=== PATIENT | female | born 1940 | race Caucasian/White ===

== ENCOUNTER → 2018-06-13 16:36 | Outpatient (CLI) | payer MEDICARE, SELFPAY ==
[2018-06-13 18:20] LABS: Vitamin D,25 Hydroxy 15.8 ng/mL (29.95-100.01)
[2018-06-13 18:21] LABS: Anion Gap 9 (5-15); BUN 20 mg/dL (7-18); BUN/Creat Ratio 18.3 RATIO (10-20); Calcium,Total 8.6 mg/dL (8.5-10.1); Chloride 104 mmol/L (98-107); Cholesterol 230 mg/dL (200); Creatinine, Serum 1.09 mg/dL (0.55-1.02); EST Glomerular Filtration Rate 51 mL/min (>60); Est Glom Filt Rate - Afr Amer 62 mL/min (>60); Glucose 89 mg/dL (74-106); High Density Lipoprotein 44 mg/dL; Potassium 4.2 mmol/L (3.5-5.1); Sodium Level 139 mmol/L (136-145); Thyroid Stim Hormone (TSH) 1.12 uIU/mL (0.358-3.74); Triglycerides 304 mg/dL; Very Low Density Lipoprotein 61 mg/dL (5-40)
== END ==
PROVIDERS: Family Provider Family Medicine; PCP Family Medicine; Visit Provider Family Medicine
DX: Z00.00 Encounter for general adult medical examination without abnormal findings (principal)
CPT/HCPCS: 36415; 80048; 80061; 82306; 84443

== ENCOUNTER → 2018-08-08 07:15 | Outpatient (CLI) | payer MEDICARE, SELFPAY ==
--- NOTE | 2018-08-08 07:21 | BI_ITS ---
MAMMOGRAPHY - BILATERAL SCREENING REASON FOR EXAM: Female, 78 years old. Routine annual screening examination. PERTINENT HISTORY: Non-contributory. TECHNIQUE: Digital bilateral breast karlene (3D mammographic acquisition) in the CC and MLO projections. 2-D mediolateral oblique (MLO) and craniocaudad (CC) views of both breasts were obtained. CAD: Full Field Digital Mammography with Computer Added Detection was performed. COMPARISON: No comparison mammograms available at this time. If any prior films become available, an addendum to this report can be generated. FINDINGS: Breast Composition: There are scattered areas of fibroglandular density. There are no dominant masses or suspicious calcifications. There is an 8.4 mm x 5.4 mm well-defined nodule in the retroareolar region of the left breast. Correlation with ultrasound is recommended. No other significant abnormalities are identified. BI/SCREENING MAMM (CAD), BILAT IMPRESSION: 8.4 mm x 5.4 mm well-defined nodule in the retroareolar region of the left breast as described. Correlation with ultrasound is recommended. ASSESSMENT CATEGORY: BIRADS Category 0: Incomplete. Need additional imaging evaluation. A letter regarding these results will be sent to the patient by the facility within 30 days. Approximately 10% of breast cancers are not detected by mammography. A normal mammogram should not delay biopsy of a clinically suspicious abnormality. [id number] Electronically Signed: Garrett Kenney MD at 10:26 EST Tel [phone], Service support ,
== END ==
PROVIDERS: Family Provider Family Medicine; PCP Family Medicine; Visit Provider Family Medicine
DX: Z12.31 Encounter for screening mammogram for malignant neoplasm of breast (principal)
CPT/HCPCS: 77063; 77067

== ENCOUNTER → 2018-09-02 07:43 | Outpatient (CLI) | payer MEDICARE, SELFPAY ==
--- NOTE | 2018-09-02 07:45 | US_ITS ---
STUDY: ULTRASOUND BREAST - LEFT REASON FOR EXAM: Female, 78 years old. Abnormal screening mammogram. TECHNIQUE: Axial and longitudinal images of the LEFT breast were performed with a high resolution ultrasound transducer. COMPARISON: Comparison is made with prior mammogram dated August 08, 2018. FINDINGS: LEFT Breast: There is a 1 cm x 0.9 cm x 0.4 cm cyst in the retroareolar region of the breast. This corresponds to the mammographic findings. Incidental note is also made of a dilated subareolar ducts. US/Breast Limited Unilateral IMPRESSION: The mammographic abnormality corresponds to a 1 cm x 0.9 cm x 0.4 cm cyst in the retroareolar region of the left breast. There is also evidence of dilated subareolar ducts. ASSESSMENT CATEGORY: BIRADS Category 2: Benign. A letter regarding these results will be sent to the patient by the facility within 30 days. Electronically Signed: Garrett Kenney MD at 8:28 EST Tel [phone], Service support ,
--- OUTSIDE RECORDS SUMMARY | 2018-10-14 20:18 | XMS RPT_ITS ---
:1940 Author Organization [facility] Care Team Providers Name Role Phone Jet Meyer Attending Unavailable Mitch, Jet Primary Care Unavailable Mitch, Jet Attending Unavailable Mitch, Jet Primary Care Unavailable Mitch, Jet Attending Unavailable Mitch, Jet Referring Unavailable Mitch, Jet Primary Care Unavailable CebuOral valles Attending Unavailable Mitch, Jet Referring Unavailable PROBLEMS PROBLEMS DATE TYPE CONDITION / CODE ATTENDING STATUS SOURCE 09/15/2018 Unknown Z12.31 - Jet Meyer Active [place] Encounter for [facility] screening Hospital mammogram for Repository malignant neoplasm of breast / Z12.31(ICD-10) 06/13/2018 Unknown Z00.00 - Jet Meyer Active [place] Encounter for [facility] medical Repository examination without abnormal findings / Z00.00(ICD-10) PROCEDURES PROCEDURES No Procedure Records FoundRESULTS RESULTS SURGERY VISIT REPORT Observed: 09/11/2018 Status: F Source: [place] 8:25 AM [facility] REPOSITORY [facility] [address] [place], [place] [address]. [address] [place] [address] OFFICE VISIT Date of Service: 09/11/18 MR#: [id number] Acct: [id number] Name: KINDRA WORTHINGTON Rep #: [id number] : 1940 Provider: Oral Francis MD Age/Sex: 78/F Location: [facility] Status: Signed Intake Vital Signs09/11/18 Height 5 ft 5 in 09/11/18 Weight: 150 lb Intake Visit Reasons: Lt Breast Abn Mamm/US WC 08/08 Warper Creeler Required: No Is patient in pain?: No Allergies No Known Allergies Allergy (Verified 09/11/18 08:09) Medications NK 09/11/18 [History Confirmed 09/11/18] [facility] Medical History History of sarcoma (Acute) Hemorrhoids (Acute) Nausea (Acute) Heart murmur (Acute) Anxiety (Acute) Arthritis (Acute) Fatigue (Acute) Surgical History History of tonsillectomy and adenoidectomy (Acute) Hx of cholecystectomy (Acute) Hx of appendectomy (Acute) Hx of colonoscopy with polypectomy (Acute) Hx of lumpectomy (Acute) Hx of hysterectomy (Acute) Social History Smoking Status: Never smoker second hand exposure: No alcohol intake: never substance use type: does not use caffeine: Yes what type of physical activity do you participate in: none frequency: does not exercise seatbelt use: always HPI HPI HPI: KINDRA WORTHINGTON, is a 78 F who presents to the office today for surgical consultation regarding mammographic and ultrasonographic imaging. Patient was referred by her primary care physician Dr. Jet Meyer and a written copy of my surgical consult recommendations will return to him. 78-year-old female. A0. Menarche at age 11. First child was born when she was 21. She has had a remote left breast biopsy for fibrocystic disease. In the she was on estrogen replacement therapy because she had had a hysterectomy. Family history is negative for breast cancer. She has no breast tenderness. No nipple discharge. No nipple bleeding. She did have a diffuse body rash. She saw dermatology Dr. Chakraborty and there was concern this might be breast cancer and so imaging was recommended. The patient had just moved from [place] back to the state of [place]. There was mold in the home and then chemicals to clean the mold. On August 08, 2018 bilateral mammography . There is an 8.4 x 5.4 mm well-defined retroareolar nodule on the left. There is an addendum also written stating that films had been obtained from July 12, 2017 and there is no change from that study. The patient had a breast ultrasound also performed on September 02, 2018 showing that this left breast item is a 1 x 0.9 x 0.4 cm simple cyst and that there was some slight ductal dilatation on the left. ROS General General: Yes fatigue; no weight change, appetite, colon cancer, breast cancer or weakness HEENT HEENT: No difficulty swallowing, eye injury, eye surgery, swollen glands or hoarseness Endo Endocrine: No thyroid disease, diabetes mellitus, thyroid cancer, Hair loss, heat intolerance or cold intolerance Skin Skin: Yes rash; no changing moles Breast Breast: Yes abnormal US and abnormal mammogram; no left breast lump, right breast lump, nipple discharge, breast pain or breast enlargement Musc Musculoskeletal: Yes back problems and arthritis; no rheumatoid arthritis, gout or joint pain Cardio Cardiovascular: Yes murmur; no pacemaker, heart disease, atrial fibrillation, high blood pressure, heart attack, heart stent, palpitations, shortness of breat with exertion or chest pain Psych Psychiatric: Yes anxiety; no depression or hearing voices Resp Respiratory: Yes cough, No shortness of breath, No sleep apnea, No COPD, No asthma, No emphysema, No wheezing Gastro Gastrointestinal: Yes nausea or vomiting, Yes hemorrhoids, No abdominal pain, No diarrhea, No constipation, No blood in stool, No acid reflux, No ulcers, No gallbladder problem, No black,tarry stools Hamlet Hematologic: No blood thinners, No blood disorders, No bleeding, No anemia, No blood clots Neuro Neurologic: No weakness, Yes tingling, Yes numbness Exam Chest Breast Palpation: No nipple discharge Other: Bilateral breasts: No focal masses. No nipple discharge. No tenderness. No axillary or clavicular adenopathy Cardio Heart Sounds: murmur Assessment AND Plan Problems 1. Abnormal mammogram of left breast R92.8 Plan 78-year-old female who initially had an abnormal mammogram on the left. However by obtaining ultrasound and obtaining her previous films from July 2017 there is evidence that there is no change in the simple cyst finding on the left. She has no breast symptoms bilaterally. There is mild ductal dilatation on ultrasound on the left but no findings to correlate. There is no dermal change of either areola or skin of the breast. I have reviewed her imaging. I am not recommending any surgical intervention at this time. The patient will continue with her self breast checks. She will obtain follow-up breast imaging at 1 year. She certainly is welcome to return if she were to develop a focal issue. At this point it appears that her BI-RADS Category 2 interpretation on mammogram and ultrasound is consistent with my benign clinical finding as well CC: Dr. Jet Francis M.D., F.A.C.S. Coding Level of Care Code Prob focused, straight fwd Diagnoses Abnormal mammogram of left breast R92.8 09/11/18 0825 <Electronically signed by Oral Francis MD> Date Oral Francis MD Cosigner Signature: Date (if applicable) CC: Jet Meyer MD BREAST LIMITED Observed: 09/02/2018 Status: F Source: [place] UNILATERAL 7:46 AM [facility] REPOSITORY [facility] [address] [place] [address] Breast Limited Unilateral MR#: [id number] Acct: [id number] Name: ELINKINDRA HARDIN Edwardo Rep #: [id number] : 1940 F 78 From: Garrett Kenney MD PCP: Jet Meyer MD Status: REG CLI Study: Breast Limited Unilateral Date of Exam: 09/02/18 Exam# [id number] Ordering Dr: Jet Meyer MD STUDY: ULTRASOUND BREAST - LEFT REASON FOR EXAM: Female, 78 years old. Abnormal screening mammogram. TECHNIQUE: Axial and longitudinal images of the LEFT breast were performed with a high resolution ultrasound transducer. COMPARISON: Comparison is made with prior mammogram dated August 08, 2018. FINDINGS: LEFT Breast: There is a 1 cm x 0.9 cm x 0.4 cm cyst in the retroareolar region of the breast. This corresponds to the mammographic findings. Incidental note is also made of a dilated subareolar ducts. US/Breast Limited Unilateral IMPRESSION: The mammographic abnormality corresponds to a 1 cm x 0.9 cm x 0.4 cm cyst in the retroareolar region of the left breast. There is also evidence of dilated subareolar ducts. ASSESSMENT CATEGORY: BIRADS Category 2: Benign. A letter regarding these results will be sent to the patient by the facility within 30 days. Electronically Signed: Garrett Kenney MD at 8:28 EST Tel [phone], Service support , CC: Jet Meyer MD Exhibition Organiser: Signed SCREENING MAMM (CAD), Observed: 08/08/2018 Status: F Source: [facility] 7:22 AM [facility] REPOSITORY [facility] Imaging Services [address] [place] [address] SCREENING MAMM (CAD), BILAT MR#: [id number] Acct: [id number] Name: ELINKINDRA A Rep #: [id number] : 1940 F 78 From: Garrett Kenney MD PCP: Jet Meyer MD Status: [facility] Study: SCREENING MAMM (CAD), BILAT Date of Exam: 08/08/18 Exam# [id number] Ordering Dr: Jet Meyer MD ADDENDUM by Garrett Kenney MD on 08/27/18 at 1320 ADDENDUM This is an addendum report. Prior outside examination dated July 12, 2017 has been made available for comparison. There has been no change since prior study. Electronically Signed: Garrett Kenney MD at 13:20 EST Tel [phone], Service support , 08/27/18 1320 Date cc: Jet Meyer MD * Signed ADDENDUM by Garrett Kenney MD on 08/27/18 at 1320 BI/SCREENING MAMM (CAD), BILAT 08/27/18 1327 Date cc: Jet Meyer MD * Signed MAMMOGRAPHY - BILATERAL SCREENING REASON FOR EXAM: Female, 78 years old. Routine annual screening examination. PERTINENT HISTORY: Non-contributory. TECHNIQUE: Digital bilateral breast karlene (3D mammographic acquisition) in the CC and MLO projections. 2-D mediolateral oblique (MLO) and craniocaudad (CC) views of both breasts were obtained. CAD: Full Field Digital Mammography with Computer Added Detection was performed. COMPARISON: No comparison mammograms available at this time. If any prior films become available, an addendum to this report can be generated. FINDINGS: Breast Composition: There are scattered areas of fibroglandular density. There are no dominant masses or suspicious calcifications. There is an 8.4 mm x 5.4 mm well-defined nodule in the retroareolar region of the left breast. Correlation with ultrasound is recommended. No other significant abnormalities are identified. BI/SCREENING MAMM (CAD), BILAT IMPRESSION: 8.4 mm x 5.4 mm well-defined nodule in the retroareolar region of the left breast as described. Correlation with ultrasound is recommended. ASSESSMENT CATEGORY: BIRADS Category 0: Incomplete. Need additional imaging evaluation. A letter regarding these results will be sent to the patient by the facility within 30 days. Approximately 10% of breast cancers are not detected by mammography. A normal mammogram should not delay biopsy of a clinically suspicious abnormality. [id number] Electronically Signed: Garrett Kenney MD at 10:26 EST Tel [phone], Service support , CC: Jet Meyer MD Exhibition Organiser: Signed VITAMIN D,25 HYDROXY Collected: 06/13/2018 Status: F Source: [place] 4:42 PM [facility] REPOSITORY TYPE CODE TESTS RESULT OUT OF REFERENCE UNITS RANGE LAB L506.1000 29.95-100.01 ng/mL Low Vitamin D 15.8 25-OH Result Comment: Vitamin D 25(OH) Status Range Deficiency <20 ng/mL (50nmol/L) Insuffciency 20 - 30 ng/mL (50 - 75 nmol/L) Sufficiency 30 - 100 ng/mL (75 - 250 nmol/L) Toxicity >100 ng/mL (>250 nmol/L) Performed By: #### L506.1000 #### [facility] [place], [address] BASIC METABOLIC Collected: 06/13/2018 Status: F Source: [place] PROFILE (BMP) 4:42 PM [facility] REPOSITORY TYPE CODE TESTS RESULT OUT OF RANGE REFERENCE UNITS LAB L501.0100 74-106 mg/dL Normal GLU 89 Result Comment: Please note revised GLUCOSE reference range effective 2017. LAB L501.1000 7-18 mg/dL High BUN 20 LAB L501.1100 0.55-1.02 mg/dL High CREAT,SERUM 1.09 Result Comment: The validity of the calculated GFR AND GFRAA in patients over 70 years has not been determined. Clinical correlation is essential. LAB L501.1110 >60 mL/min Low EST GFR 51 Result Comment: Non- GFR Calc LAB L501.1115 >60 mL/min Normal EST GFR - AA 62 Result Comment: GFR Calc LAB L501.1300 10-20 RATIO Normal BUN/CRE 18.3 LAB L501.2200 8.5-10.1 mg/dL CA Normal 8.6 LAB L501.5300 136-145 mmol/L NA Normal 139 LAB L501.5600 3.5-5.1 mmol/L K Normal 4.2 LAB L501.5900 98-107 mmol/L CL Normal 104 LAB L501.6100 21.0-32.0 mmol/L Normal CO2 26.0 LAB L501.6200 5-15 Normal GAP 9 Performed By: #### L500.2500, L500.4100, L501.9520 #### [facility] [address] [facility] [place], [address] LIPID PROFILE Collected: 06/13/2018 Status: F Source: [place] 4:42 PM [facility] REPOSITORY TYPE CODE TESTS RESULT OUT OF RANGE REFERENCE UNITS LAB L501.4900 200 mg/dL High CHOL 230 Result Comment: <200 mg/dL Desirable 200-240 mg/dL Borderline >240 mg/dL High Risk LAB L501.5000 mg/dL High TRIG 304 Result Comment: The drugs N-Acetylcysteine and Metamizole may falsely depress this assay. Serum Triglycerides Reference Interval Normal <150 mg/dL Borderline high 150 - 199 mg/dL High 200 - 499 mg/dL Very High > or = 500 mg/dL LAB L501.6400 mg/dL Normal HDL 44 Result Comment: The drugs N-Acetylcysteine and Metamizole may falsely depress this assay. Reference Range HDL <40 mg/dL Low HDL Cholesterol HDL >or= 60 mg/dL High HDL Cholesterol LAB L501.6500 0-130 mg/dL Normal LDL 125 LAB L501.6600 5-40 mg/dL High VLDL 61 Performed By: #### L500.2500, L500.4100, L501.9520 #### [facility] [address] [place], [address] THYROID STIM HORMONE Collected: 06/13/2018 Status: F Source: [place] (TSH) 4:42 PM [facility] REPOSITORY TYPE CODE TESTS RESULT OUT OF RANGE REFERENCE UNITS LAB L501.9520 0.358-3.74 uIU/mL Normal TSH 1.12 Performed By: #### L500.2500, L500.4100, L501.9520 #### [facility] [address] [place], [address] ALLERGIES ALLERGIES DATE TYPE / CODE NAME / CODE REACTION SEVERITY SOURCE 09/11/2018 Drug No Known Unknown [facility] Allergy/4160 Allergies/F00 [facility] 57265(SNOMED [id number](RXNOR Repository CT) M) ENCOUNTERS ENCOUNTERS ADMIT/DISCHARGE ACCOUNT ADMITTING ENCOUNTER LOCATION SOURCE NUMBER CLASS 09/11/2018/ [id number] Ambulatory [facility]B [place] [facility]ository 09/02/2018 [id number] Ambulatory [place] 0 [facility] ing:OPUS Repository 08/08/2018 [id number] [place] [facility] ing:OPBI Repository 06/13/2018 [id number] Ambulatory [place] 1 [facility] ing:MFPLAB Repository PAYERS PAYERS ENCOUNTER GUARANTOR PAYER SUBSCRIBER SOURCE 09/11/2018 KINDRA Brooke Primary KINDRA Raymond [id number] Insurance:ANTHEM [facility]ERD[facility] PPOPolicy [id number] Number: Repository [address]Ozy: 503 [id number] [phone] () Date:[id number] [address]OW: 09/11/2018 Secondary NOT GIVENUNK [place] Insurance:SELF PAY [facility] Number: Effective Repository Date:2018-09-09 09/02/2018 KINDRA Brooke Primary KINDRA Raymond [id number] Insurance:ANTHEM ZOLLINGERDOB[facility] PPOPolicy [id number] Number: Repository [id number]: [phone]) [id number] [phone] (HP) Date:[id number] [address] [place] [address] [place] [address]UG: 09/02/2018 Secondary NOT GIVENUNK [place] Insurance:SELF PAY [facility] Number: Effective Repository Date:2018-08-27 08/08/2018 KINDRA Brooke Primary KINDRA Brooke [place] [id number] Insurance:ANTHEM ZOLLINGERDOB: [facility] [address] MEDICARE PPOPolicy [id number] Number: Repository [id number]: (503) [id number] [phone] (HP) Date:[id number] [address] [place] [address] [place] [address]CZ: 08/08/2018 Secondary NOT GIVENUNK [place] Insurance:SELF PAY [facility] Number: Effective Repository Date:2018-08-07 06/13/2018 KINDRA Primary KINDRA [place] [id number] Insurance:ANTHEM ZOLLINGERDOB: [facility] [address] MEDICARE PPOPolicy [id number] Number: Repository [phone]: (503) [id number] [phone] (HP) Date:[id number] [address] [place] [address] [place] [address]HE: 06/13/2018 Secondary NOT GIVENUNK [place] Insurance:SELF PAY [facility] Number: Effective Repository Date:2018-06-13
== END ==
PROVIDERS: Family Provider Family Medicine; PCP Family Medicine; Referring Provider Family Medicine; Visit Provider Family Medicine
DX: R92.2 Inconclusive mammogram (principal)
CPT/HCPCS: 76642

== ENCOUNTER → 2019-01-12 10:56 | Outpatient (CLI) | payer MEDICARE, SELFPAY ==
[2018-09-11 08:08] VITALS: BMI 25.0
[2019-01-19 03:05] LABS: Alternaria alternata <0.10 kU/L (Class 0); Aspergillus fumigatus <0.10 kU/L (Class 0); Bahia Grass <0.10 kU/L (Class 0); Bermuda Grass <0.10 kU/L (Class 0); Bluegrass, Kentucky <0.10 kU/L (Class 0); Cat Hair/Dander, Standard <0.10 kU/L (Class 0); Cedar, Mountain <0.10 kU/L (Class 0); Cladosporium herbarum <0.10 kU/L (Class 0); Cockroach, American <0.10 kU/L (Class 0); D farinae Mite <0.10 kU/L (Class 0); D pteronyssinus <0.10 kU/L (Class 0); Dog Epithelia <0.10 kU/L (Class 0); Elm, American White <0.10 kU/L (Class 0); Hazelnut Tree <0.10 kU/L (Class 0); Hickory, White <0.10 kU/L (Class 0); Johnson Grass <0.10 kU/L (Class 0); Maple/Box Elder <0.10 kU/L (Class 0); Mucor racemosus <0.10 kU/L (Class 0); Mugwort <0.10 kU/L (Class 0); Mulberry, White <0.10 kU/L (Class 0); Oak, White <0.10 kU/L (Class 0); Penicillium chrysogen <0.10 kU/L (Class 0); Pigweed, Rough <0.10 kU/L (Class 0); Plantain, English <0.10 kU/L (Class 0); Ragweed, Short/Common <0.10 kU/L (Class 0); Sheep Sorrel(Dock) <0.10 kU/L (Class 0); Stemphylium herbarum <0.10 kU/L (Class 0); Sweet Gum <0.10 kU/L (Class 0); Sycamore, American <0.10 kU/L (Class 0)
[2019-01-19 10:02] LABS: Nettle <0.10 kU/L (Class 0)
== END ==
PROVIDERS: Family Provider Family Medicine; PCP Family Medicine; Visit Provider Family Medicine
DX: T78.40XA Allergy, unspecified, initial encounter (principal)
CPT/HCPCS: 36415; 86003

== ENCOUNTER → 2019-01-22 09:06 | Outpatient (CLI) | payer MEDICARE, SELFPAY ==
[2018-09-11 08:08] VITALS: BMI 25.0
[2019-01-22 10:39] LABS: Vitamin D,25 Hydroxy 21.7 ng/mL (29.95-100.01)
[2019-01-22 10:48] LABS: Anion Gap 5 (5-15); BUN 15 mg/dL (7-18); BUN/Creat Ratio 17.9 RATIO (10-20); Calcium,Total 8.9 mg/dL (8.5-10.1); Chloride 107 mmol/L (98-107); Cholesterol 258 mg/dL (200); Creatinine, Serum 0.84 mg/dL (0.55-1.02); EST Glomerular Filtration Rate 70 mL/min (>60); Est Glom Filt Rate - Afr Amer 84 mL/min (>60); Glucose 92 mg/dL (74-106); High Density Lipoprotein 48 mg/dL; Potassium 4.5 mmol/L (3.5-5.1); Sodium Level 140 mmol/L (136-145); Thyroid Stim Hormone (TSH) 1.92 uIU/mL (0.358-3.74); Triglycerides 126 mg/dL; Very Low Density Lipoprotein 25 mg/dL (5-40)
== END ==
PROVIDERS: Family Provider Family Medicine; PCP Family Medicine; Referring Provider Family Medicine; Visit Provider Family Medicine
DX: Z00.00 Encounter for general adult medical examination without abnormal findings (principal); E55.9 Vitamin D deficiency, unspecified
CPT/HCPCS: 36415; 80048; 80061; 82306; 84443

== ENCOUNTER 2019-05-04 06:08 | Emergency (ER) | payer MEDICARE, SELFPAY ==
[2018-09-11 08:08] VITALS: BMI 25.0
[2019-05-04 06:10] VITALS: BP 205/125; PULSE 92; RESP 15; TEMP 36.8; O2SAT 95; BMI 26.6
--- NOTE | 2019-05-04 06:17 | EKG12_ITS ---
Test Reason : LEG PAIN Blood Pressure : / mmHG Vent. Rate : 088 BPM Atrial Rate : 088 BPM P-R Int : 148 ms QRS Dur : 088 ms QT Int : 372 ms P-R-T Axes : 065 029 036 degrees QTc Int : 450 ms Normal sinus rhythm Normal ECG Confirmed by JUANITO EDWARDS, MAYLIN ([id number]), editor news CHALO GONZALEZ ([id number]) on 05/06/2019 10:43:48 AM Referred By: GONZALEZ Confirmed By:MAYLIN SOLOMON MD
--- NOTE | 2019-05-04 06:29 | ED.DCSUM_ITS ---
History of Present Illness Chief Complaint: Other, Pain/Inj Detail of Chief Complaint: Left lower extremity pain, weight gain, swelling Informant: Patient, Significant Other Onset: Today - Regarding transient intermittent left leg pain, Weeks - 5 pound weight gain and swelling of the lower extremities Context: Gradual Onset Timing: Intermittent Quality: Pain in thigh and distal anterior left leg Location: Left thigh and distal anterior left leg Current Severity: Presently no pain Maximum Severity: Severe Worsened by: Nothing Relieved by: Nothing Associated Symptoms: Tingling Narrative: Patient is an elderly woman who presents with thigh pain and intermittent left anterior leg pain. She describes the thigh pain is cramping. The leg pain was not cramping. There is no history of PE or DVT. She does report a 5 pound weight gain over the past several weeks. She also reports swelling of her lower extremities. She denies history of heart disease. She denies orthopnea PND. She denies dyspnea or dyspnea on exertion. She denies night sweats. She denies change in the consistency, frequency, caliber or color of her stool. She had a recent colonoscopy, 3 months ago, that was remarkable for a small polyp. She has had intermittent bright red blood on toilet paper. She states she has hemorrhoids. She denies chest pain or shortness of breath. 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13 (2) Hemorrhoids Status: Acute (3) Anxiety Status: Acute Past Medical History - Allergies and Home Meds Allergies/Adverse Reactions: Allergies No Known Allergies Allergy (Verified 09/11/18 08:09) Primary Care Physician: Jet Meyer MD [Primary Care Provider] - Prior records reviewed: Yes Lives: Spouse/ Significant Other Smoking Status: Never smoker Alcohol: Rare Drugs: None Review of Systems General: Denies: Chills, Fever, Sweats Eyes: Denies: Visual changes - bilaterally, Blurred Vision - bilaterally, Diplopia ENT: Denies: Rhinorrhea, Sore throat Cardiovascular: Denies: Chest pain, Palpitations Respiratory: Denies: Dyspnea, Cough, Dyspnea on exertion, Orthopnea, Paroxysmal nocturnal dyspnea Gastrointestinal: Denies: Abdominal pain, Nausea, Vomiting, Diarrhea, Constipation, Melena, Hematochezia Genitourinary: Denies: Dysuria, Hematuria, Frequency Musculoskeletal: Reports: Extremity Pain. Denies: Myalgias, Arthralgias, Neck pain, Back pain, Swelling Skin: Denies: Rash, Wounds Neurological: Reports: Parasthesia. Denies: Headache, Weakness, Numbness Psych: Reports: Anxiety Hematologic: Denies: Easy bruising, Easy bleeding Physical Exam Vital Signs/Narrative: Vital Signs Temp Pulse Resp BP Pulse Ox 05/04/19 06:10 98.3 F 92 15 205/125 H 95 Inital Vital Signs reviewed: Yes General: Well nourished, Well developed, No Acute Distress Head: Normocephalic, Atraumatic Eyes: Perrl, EOMI ENT: Moist mucous membranes, No rhinorrhea Neck: Supple, Nontender Cardiovascular: Regular rate, Regular rhythm, No murmurs, Normal S1, Normal S2 Respiratory: No distress, CTA bilaterally, Chest nontender Abdomen: Soft, Nontender, Nondistended, Normal bowel sounds Back: Nontender, Normal Inspection Extremities: Nontender, Edema - Plus minus pitting edema., - - There is no asymmetry, swelling, discoloration, leg vein distention, palpable cords or tenderness along the distribution of the deep venous system. Skin: Normal color, No rash, No Trauma. Negative for: Cyanosis, Diaphoresis, J aundice Neurological: Alert, Oriented x3, Cranial nerves II-XII grossly intact, Normal Strength, Normal Sensation Psychological: Normal affect, Normal Mood Diagnostic/Tx/Re-eval Laboratory Results 05/04/19 05/04/19 06:40 06:40 WBC 5.2 RBC 4.81 Hgb 14.4 Hct 42.5 MCV 88.4 MCH 29.9 MCHC 33.9 RDW Std Deviation 41.1 RDW Coeff of Jennifer 12.4 Plt Count 249 MPV 10.2 Immature Gran % (Auto) 0.400 Neut % (Auto) 61.0 Lymph % (Auto) 28.4 [place] % (Auto) 7.3 Eos % (Auto) 2.5 Baso % (Auto) 0.4 Absolute Neuts (auto) 3.2 Absolute Lymphs (auto) 1.47 Nucleated RBC % 0 Sodium 143 Potassium 4.6 Chloride 109 H Carbon Dioxide 26.0 Anion Gap 8 BUN 20 H Creatinine 0.99 Estim Creat Clear Calc 40.78 Est GFR (MDRD) Af Amer 69 Est GFR (MDRD) Non-Af 57 L BUN/Creatinine Ratio 20.2 H Glucose 112 H Calcium 9.1 Total Bilirubin 0.40 AST 22 ALT 27 Alkaline Phosphatase 76 Troponin I < 0.015 Total Protein 7.7 Albumin 3.8 Globulin 3.9 Albumin/Globulin Ratio 1.0 TSH 4.05 H Blood work is remarkable for slight elevation in TSH. This may represent hypothyroidism and because of her fatigue and weight gain. Troponin was normal. CBC is unremarkable. Liver enzymes and alk phos as well as calcium are normal. - EKG Initial EKG Interpretation: Sinus Rhythm - Ventricular rate is 88. PA interval is 148 ms. QRS duration 88 ms. QT is 372 ms. [place] is normal. The EKG is completely normal. - Medical Decision Making With history of fatigue, 5 pound weight gain swelling of extremities will obtain TSH to assess for hypothyroidism. EKG was obtained to determine if there are any changes to suggest ischemia. Troponin was obtained as well as CBC and electrolyte panel. Since lungs were clear to auscultation x-ray was not obtained. ED Disposition - Plan for ED Patient: Disposition: Home or Assisted Living Diagnosis: Elevated TSH, Pain in left leg Instructions: Common Thyroid Problems, PAIN, Uncertain Cause (Acute) Referrals: Jet Meyer MD [Primary Care Provider] - 3-5 Days
[2019-05-04 06:44] LABS: Absolute Lymphocyte Count 1.47 X10^3/uL (0.83-4.51); Absolute Neutrophil Count 3.2 X10^3/uL (2.0-7.7); Basophil# 0.02 X10^3/uL; Basophil% 0.4 % (0-1); Eosinophil# 0.13 X10^3/uL; Eosinophils% 2.5 % (0-5); Hematocrit 42.5 % (37-47); Hemoglobin 14.4 g/dL (12.0-15.0); Lymphocyte # 1.47 X10^3/ul (4.0); Lymphocyte % 28.4 % (19-41); Mean Corp Hgb Conc 33.9 g/dL (32-36); Mean Corpuscular Hgb 29.9 pg (27.0-32.0); Mean Corpuscular Volume 88.4 fL (81-99); Mean Platelet Vol. 10.2 fl (6.2-12.0); Monocyte# 0.38 X10^3/uL; Monocyte% 7.3 % (0-10); NRBC Flagged by Analyzer 0 % (0-5); Neutrophil # 3.16 X10^3/uL (2.7-7.7); Platelet Count 249 K/mm3 (150-450); RBC Distribution Width CV 12.4 % (11.6-14.6); RBC Distribution Width SD 41.1 fl (35.1-43.9); Red Blood Count 4.81 M/mm3 (4.2-5.4); White Blood Count 5.2 K/mm3 (4.4-11.0)
[2019-05-04 07:08] LABS: AST(SGOT) 22 U/L (15-37); Alanine Aminotransfer ALT/SGPT 27 U/L (13-56); Albumin, Serum 3.8 g/dL (3.2-5.0); Alkaline Phosphatase 76 U/L (45-117); Anion Gap 8 (5-15); BUN 20 mg/dL (7-18); BUN/Creat Ratio 20.2 RATIO (10-20); Calcium,Total 9.1 mg/dL (8.5-10.1); Chloride 109 mmol/L (98-107); Creatinine, Serum 0.99 mg/dL (0.55-1.02); EST Glomerular Filtration Rate 57 mL/min (>60); Est Glom Filt Rate - Afr Amer 69 mL/min (>60); Estimated Creatinine Clearance 40.78 ml/min; Globulin 3.9 g/dL (2.2-4.2); Glucose 112 mg/dL (74-106); Potassium 4.6 mmol/L (3.5-5.1); Protein, Total 7.7 g/dL (6.4-8.2); Sodium Level 143 mmol/L (136-145); Thyroid Stim Hormone (TSH) 4.05 uIU/mL (0.358-3.74)
[2019-05-04 07:35] VITALS: BP 108/77; PULSE 72; RESP 15; O2SAT 98
== END 2019-05-04 07:37 | disposition home or self-care (01) ==
PROVIDERS: Emergency Provider Emergency Medicine; Family Provider Family Medicine; PCP Family Medicine
DX: M79.605 Pain in left leg (principal); M79.652 Pain in left thigh; R79.89 Other specified abnormal findings of blood chemistry; R20.2 Paresthesia of skin; F41.9 Anxiety disorder, unspecified; M79.89 Other specified soft tissue disorders; K64.9 Unspecified hemorrhoids; Z86.010 Personal history of colon polyps; Z85.831 Personal history of malignant neoplasm of soft tissue
CPT/HCPCS: 80053; 84443; 84484; 85025; 93005; 93971; 99284; A4216

== ENCOUNTER → 2019-05-04 | Outpatient (CLI) | payer MEDICARE, SELFPAY ==
[2019-05-04 06:10] VITALS: BMI 26.6
--- NOTE | 2019-05-04 11:40 | VDLE_ITS ---
Reason For Study: PAIN Procedure LEFT Exam performed in department. GSV is normal. A preliminary report was called and/or faxed CFV is compressible, spontaneous, phasic, to DR MEYER. competent, and demonstrates normal augmentation. FV is compressible, spontaneous, phasic, competent and demonstrates normal augmentation. POP V is compressible, spontaneous, phasic, competent and demonstrates normal augmentation. T/P Trunk is compressible. PTV is compressible. LT PerV is compressible. Interpretation Summary Deep veins of the left lower extremity are patent and compressible segmentally. There is no evidence of left lower extremity deep vein thrombosis. Valvular competence appears intact within the proximal deep venous system on the left . The left greater saphenous vein appears patent and compressible segmentally. Ordering Physician: Jet Meyer Referring Physician: Jet Meyer Performed By: Ofelia Frey, ARIES, RVT
== END | disposition home or self-care (01) ==
LOC: CVS 11:40
PROVIDERS: Family Provider Family Medicine; PCP Family Medicine; Referring Provider Family Medicine; Visit Provider Family Medicine
DX: M79.605 Pain in left leg (principal)
CPT/HCPCS: 93971

== ENCOUNTER → 2019-09-25 09:52 | Outpatient (CLI) | payer MEDICARE, SELFPAY ==
[2019-09-25 12:25] LABS: Anion Gap 4 (5-15); BUN 19 mg/dL (7-18); BUN/Creat Ratio 21.8 RATIO (10-20); Calcium,Total 8.7 mg/dL (8.5-10.1); Chloride 106 mmol/L (98-107); Cholesterol 243 mg/dL (200); Creatinine, Serum 0.87 mg/dL (0.55-1.02); EST Glomerular Filtration Rate 66 mL/min (>60); Est Glom Filt Rate - Afr Amer 80 mL/min (>60); Free T3 2.8 pg/mL (2.18-3.98); Glucose 94 mg/dL (74-106); High Density Lipoprotein 45 mg/dL; Potassium 4.3 mmol/L (3.5-5.1); Sodium Level 138 mmol/L (136-145); Triglycerides 153 mg/dL; Very Low Density Lipoprotein 31 mg/dL (5-40)
[2019-09-28 17:22] LABS: T4 Total, Thyroxin 9.3 ug/dL (4.8-13.9)
== END ==
PROVIDERS: Family Provider Family Medicine; PCP Family Medicine; Referring Provider Family Medicine; Visit Provider Family Medicine
DX: E03.9 Hypothyroidism, unspecified (principal); E78.5 Hyperlipidemia, unspecified
CPT/HCPCS: 36415; 80048; 80061; 84436; 84443; 84481

== ENCOUNTER → 2020-02-15 15:13 | Outpatient (CLI) | payer MEDICARE, SELFPAY ==
[2020-02-15 17:31] LABS: Absolute Lymphocyte Count 1.74 X10^3/uL (0.83-4.51); Basophil# 0.02 X10^3/uL; Basophil% 0.3 % (0-1); Eosinophil# 0.17 X10^3/uL; Eosinophils% 2.7 % (0-5); Hematocrit 41.7 % (37-47); Hemoglobin 13.7 g/dL (12.0-15.0); Lymphocyte # 1.74 X10^3/ul (4.0); Lymphocyte % 27.1 % (19-41); Mean Corp Hgb Conc 32.9 g/dL (32-36); Mean Corpuscular Hgb 29.7 pg (27.0-32.0); Mean Corpuscular Volume 90.3 fL (81-99); Mean Platelet Vol. 11.2 fl (6.2-12.0); Monocyte% 7.8 % (0-10); NRBC Flagged by Analyzer 0 % (0-5); Neutrophil # 3.97 X10^3/uL (2.7-7.7); Neutrophil % 61.9 % (47-70); Platelet Count 273 K/mm3 (150-450); RBC Distribution Width SD 42.4 fl (35.1-43.9); Red Blood Count 4.62 M/mm3 (4.2-5.4); White Blood Count 6.4 K/mm3 (4.4-11.0)
[2020-02-15 17:55] LABS: Anion Gap 4 (5-15); BUN 19 mg/dL (7-18); BUN/Creat Ratio 18.6 RATIO (10-20); Calcium,Total 9.2 mg/dL (8.5-10.1); Chloride 106 mmol/L (98-107); Creatinine, Serum 1.02 mg/dL (0.55-1.02); EST Glomerular Filtration Rate 55 mL/min (>60); Est Glom Filt Rate - Afr Amer 67 mL/min (>60); Free T3 2.4 pg/mL (2.18-3.98); Glucose 92 mg/dL (74-106); Sodium Level 138 mmol/L (136-145); T4 Total, Thyroxin 7.4 ug/dL (4.8-13.9); Thyroid Stim Hormone (TSH) 1.79 uIU/mL (0.358-3.74)
== END ==
PROVIDERS: PCP Family Medicine; Visit Provider Family Medicine
DX: E03.9 Hypothyroidism, unspecified (principal); R05 Cough
CPT/HCPCS: 36415; 80048; 84436; 84443; 84481; 85025

== ENCOUNTER 2021-03-14 10:00 | Outpatient (RCR) | payer MEDICARE, SELFPAY ==
--- NOTE | 2021-02-15 16:22 | HP.OTEVAL_ITS ---
Patient's Visit Information KINDRA WORTHINGTON is a 80 year old F, referred to Occupational Therapy by Dr. Jet Meyer MD, with a diagnosis of left wrist fx. Date of Evaluation: 02/15/21 Occupational Therapist: Zahida Cope, CAMRONR/Larry, CHT - Subjective This 80 year old female fell on December 13 and sx on December 16 2020. pt states she was in [place] when she fell and sx-. denies tingling but reports numbness. pt is right handed. 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, Place dish in microwave Yard: [place], [place], Use shovel, Use pruners, Use trowel - Pain left wrist 4 Pain Intensity Range: 4 - ROM Forearm: right/left equal WNL Wrist: right 65/70 left 45/45 - Strength Composite Laminator: right 58# left 15# Lateral Pinch: right 10# left 8# Tripod Pinch: right 10# left 6# - Edema Wrist: right 15cm left 17cm - Sensation Thumb: right 3.22 left 2.83 Index: right 2.83 left 2.83 Middle: right 2.83 left 2.83 Ring: right 2.83 left 2.83 Little: right 2.83 left 2.83 - Quick DASH-Disab of Arm,Shoulder& Hand Quick DASH Score: 47.7250 - Goals Goal:: pt will demo a 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 with ADLs and IADLs by d/c Goal:: pt will demo a increase in left wrist flex/ext by 15* or greater to increase pts ind. with ADLs and IADLs by D/C. - Rehabilitation General Assessment: ORIF 8 weeks s/p- pt demo with weakness and limited ROM decreasing pts IND with ADLs and IADLs. pt would benefit from skilled OT services 1x week for 6 weeks to return pt to using her left UE with ADLs and IADL. Rehabilitation Potential: Good - Anticipated Interventions A/AAROM/PROM, Strengthening, Triggerpoint Release, Modalities, Joint Protection/Energy Conservation, Ergonomic Education, ADL Training - Visit Plan Frequency: 1x/Week Duration: 6 Weeks TEXT: Thank you for the opportunity to evaluate your patient. For Medicare and Medicare HMO plans, please review the plan of care and approve it. It will need to be FAXED BACK to us at [phone] for Medicare purposes. Please let me know if there are questions or concerns regarding this plan of care. Physician Signature: Date:
--- NOTE | 2021-03-14 10:23 | HP.OTDCSUM ---
It has been my pleasure to treat KINDRA WORTHINGTON under orders from Dr. Jet Meyer MD, for the diagnosis of left wrist fx for a total of 5 visit(s). Please see the following information for a summary of their discharge status. 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 left lateral pinch pinch 8#. left wrist 65/60 Patient Goals: Regain Mobility, Regain Strength, Be More Independent in ADLS Goal:: pt will demo a increase in left subway conductor strength by 20# or greater to increase pts ind. with ADLs and IADLs by d/c Goal:: pt will demo a increase in left wrist flex/ext by 15* or greater to increase pts ind. with ADLs and IADLs by D/C. Plan: cont w/PRE Discharge Comments: pt was seen for 5 OT following a left wrist fx. ORIF. PT made good gains with ROM and strength and has met OT goals. Pt is d/c at this time. therapist advised pt she will continue to have some discomfort with ADLs at times but this soon will diminish. 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 pt agree to D/c If there are questions or concerns regarding this patient's occupational therapy, please fell free to call me at [phone]. Thank you for the referral of this patient. Sincerely, Zahida Cope, OTR/L, CHT
== END 2021-03-15 19:00 | disposition home or self-care (01) ==
LOC: OT 10:00
PROVIDERS: PCP Family Medicine; Referring Provider Family Medicine; Visit Provider Family Medicine
DX: M25.532 Pain in left wrist (principal)
CPT/HCPCS: 97110; 97166; 97530

== ENCOUNTER 2021-12-13 10:11 | Outpatient (CLI) | payer MEDICARE, SELFPAY ==
[2021-12-13 12:00] LABS: Absolute Neutrophil Count 3.3 X10^3/uL (2.0-7.7); Basophil# 0.03 X10^3/uL; Basophil% 0.5 % (0-1); Eosinophil# 0.16 X10^3/uL; Eosinophils% 2.8 % (0-5); Hematocrit 41.1 % (37-47); Hemoglobin 13.6 g/dL (12.0-15.0); Lymphocyte % 29.9 % (19-41); Mean Corp Hgb Conc 33.1 g/dL (32-36); Mean Corpuscular Hgb 29.5 pg (27.0-32.0); Mean Corpuscular Volume 89.2 fL (81-99); Mean Platelet Vol. 11.1 fl (6.2-12.0); Monocyte# 0.44 X10^3/uL; Monocyte% 7.7 % (0-10); NRBC Flagged by Analyzer 0 % (0-5); Neutrophil # 3.33 X10^3/uL (2.7-7.7); Neutrophil % 58.7 % (47-70); Platelet Count 291 K/mm3 (150-450); RBC Distribution Width CV 12.9 % (11.6-14.6); RBC Distribution Width SD 41.9 fl (35.1-43.9); Red Blood Count 4.61 M/mm3 (4.2-5.4); White Blood Count 5.7 K/mm3 (4.4-11.0)
[2021-12-13 12:33] LABS: ALB/GLOB Ratio 1.2 RATIO (0.9-2.4); AST(SGOT) 24 U/L (15-37); Alanine Aminotransfer ALT/SGPT 30 U/L (13-56); Albumin, Serum 3.9 g/dL (3.2-5.0); Alkaline Phosphatase 76 U/L (45-117); Anion Gap 7 (5-15); BUN 20 mg/dL (7-18); Calcium,Total 9.1 mg/dL (8.5-10.1); Chloride 106 mmol/L (98-107); Creatinine, Serum 0.77 mg/dL (0.55-1.02); EST Glomerular Filtration Rate 76 mL/min (>60); Est Glom Filt Rate - Afr Amer 92 mL/min (>60); Globulin 3.3 g/dL (2.2-4.2); Glucose 95 mg/dL (74-106); Lipase 145 U/L (73-393); Potassium 4.4 mmol/L (3.5-5.1); Protein, Total 7.2 g/dL (6.4-8.2); Sodium Level 139 mmol/L (136-145)
== END 2021-12-13 23:59 | disposition home or self-care (01) ==
LOC: MFPLAB 10:14
PROVIDERS: PCP Family Medicine; Referring Provider Family Medicine; Visit Provider Family Medicine
DX: R10.9 Unspecified abdominal pain (principal)
CPT/HCPCS: 36415; 80053; 83690; 85025

== ENCOUNTER → 2022-02-07 | Outpatient (CLI) | payer MEDICARE, SELFPAY ==
--- NOTE | 2022-02-07 15:49 | RAD_ITS ---
STUDY: X-RAY - ABDOMEN/PELVIS REASON FOR EXAM: Female, 81 years old. ABDOMINAL PAIN TECHNIQUE: 4 COMPARISON: None. FINDINGS: Normal visualized lung bases. There is an unremarkable bowel gas pattern. There is no demonstrated free abdominal air. The visualized liver, spleen and kidneys are grossly normal in size and morphology. Normal soft tissue structures. Normal visualized osseous structures. RAD/Abd Inc Decub and/or Erect IMPRESSION: Normal x-ray examination of the abdomen and pelvis. Electronically Signed: Charles Freitas MD at 2:31 EDT ,
== END | disposition home or self-care (01) ==
LOC: MTRAD 15:47
PROVIDERS: PCP Family Medicine; Referring Provider Family Medicine; Visit Provider Family Medicine
DX: R10.9 Unspecified abdominal pain (principal)
CPT/HCPCS: 74019

== ENCOUNTER → 2022-02-15 | Outpatient (CLI) | payer MEDICARE, SELFPAY ==
[2022-02-15 10:39] LABS: Erythrocyte Sedimentation Rate 19 mm/hr (0-30)
[2022-02-15 11:06] LABS: CRP < 2.90 mg/L (0.0-3.0); LDH 222 U/L (84-246)
[2022-02-16 14:10] LABS: Anti-Centromere B Ab <0.2 AI (0.0-0.9); Anti-Chromatin <0.2 AI (0.0-0.9); Anti-Jo <0.2 AI (0.0-0.9); Anti-Scleroderma-70 AB <0.2 AI (0.0-0.9); RNP Ab <0.2 AI (0.0-0.9); SJOGREN'S Anti-SS-A test < 0.2 AI (0.0-0.9); SJOGREN'S Anti-SS-B test < 0.2 AI (0.0-0.9); Smith Ab <0.2 AI (0.0-0.9)
[2022-02-16 15:09] LABS: Endomysial Antibody IgA Negative (Negative)
[2022-02-16 18:59] LABS: Anti-dsDNA Ab <1 IU/mL (0-9)
[2022-02-16 19:02] LABS: Immunoglobulin A 131 mg/dL (64-422); t-Transglutaminase IgA 8 U/mL (0-3)
[2022-02-23 14:10] LABS: Cytoplasmic Ab (C-ANCA) <1:20 titer (Neg:<1:20); Immunoglobulin A 124 mg/dL (64-422); Immunoglobulin E 5 IU/mL (6-495); Immunoglobulin G 1405 mg/dL (586-1602)
[2022-02-23 16:22] LABS: Gastrin, Serum 15 pg/mL (0-115); Immunoglobulin M 60 mg/dL (26-217); Perinuclear Ab (P-ANCA) <1:20 titer (Neg:<1:20)
== END | disposition home or self-care (01) ==
LOC: LAB 09:50
PROVIDERS: PCP Family Medicine; Visit Provider Internal Medicine Gastroenterology
DX: R11.0 Nausea (principal); R53.83 Other fatigue; M19.90 Unspecified osteoarthritis, unspecified site
CPT/HCPCS: 36415; 82784; 82785; 82941; 83516; 83615; 85652; 86140; 86225; 86235; 86255; 86256

== ENCOUNTER → 2022-02-16 | Outpatient (CLI) | payer MEDICARE, SELFPAY ==
[2022-02-19 21:46] LABS: Fats, Neutral Normal (.); Fats, Total Normal (.)
== END | disposition home or self-care (01) ==
LOC: LAB 09:31
PROVIDERS: PCP Family Medicine; Referring Provider Internal Medicine Gastroenterology; Visit Provider Internal Medicine Gastroenterology
DX: R11.0 Nausea (principal); R53.83 Other fatigue; M19.90 Unspecified osteoarthritis, unspecified site
CPT/HCPCS: 82705; 83630

== ENCOUNTER 2022-05-14 08:52 | Outpatient (RCR) | payer SELFPAY | END 2022-06-06 23:59 | LOC: NS 08:52 | PROVIDERS: PCP Family Medicine; Visit Provider Internal Medicine Gastroenterology | DX: K90.0 Celiac disease (principal) | CPT/HCPCS: 97802 ==

== ENCOUNTER 2022-08-20 10:09 | Outpatient (CLI) | payer MEDICARE, SELFPAY ==
[2022-08-20 12:28] LABS: Cholesterol 270 mg/dL (200); High Density Lipoprotein 60 mg/dL; Triglycerides 129 mg/dL; Very Low Density Lipoprotein 26 mg/dL (5-40)
== END 2022-08-20 23:59 | disposition home or self-care (01) ==
LOC: MFPLAB 10:16
PROVIDERS: PCP Family Medicine; Referring Provider Family Medicine; Visit Provider Family Medicine
DX: Z00.00 Encounter for general adult medical examination without abnormal findings (principal); I10 Essential (primary) hypertension
CPT/HCPCS: 36415; 80061

== ENCOUNTER → 2022-11-06 | Outpatient (CLI) | payer MEDICARE, SELFPAY ==
--- NOTE | 2022-11-06 14:16 | CT_ITS ---
STUDY: CT PARANASAL SINUSES WITH CONTRAST REASON FOR EXAM: Female, 82 years old. SINUSITIS RADIATION DOSAGE (If Supplied By Facility): CTDIvol = ( 29.38 ) mGy, DLP = ( 496.03 ) mGycm TECHNIQUE: The patient was scanned in a multi-detector CT scanner. High resolution transaxial imaging was performed following the intravenous administration of 50 CC ISOVUE 300. Sagittal and coronal images were reconstructed. Individualized dose optimization techniques were used for this CT. COMPARISON: None. FINDINGS: FRONTAL SINUSES: Normal development and aeration of the bilateral frontal sinuses without mucosal inflammatory disease. ETHMOIDAL SINUSES: Normal development and aeration of the bilateral ethmoidal air cells without mucosal inflammatory disease. MAXILLARY SINUSES: Normal development and aeration of the bilateral maxillary antra without mucosal inflammatory disease. SPHENOIDAL SINUSES: Normal aeration of the bilateral sphenoid sinuses and there is no mucosal inflammatory disease. OMU: Normal aeration of the bilateral maxillary infundibulum. Normal uncinate process, ethmoid bulla, and hiatus semilunaris. MIDDLE TURBINATES: Normal bilateral middle turbinates without a salma bullosa or paradoxical curvature. INFERIOR TURBINATES: Hypertrophy of the right inferior turbinate. NASAL SEPTUM: Nasal septal deviation towards the left side of the midline. Normal anterior cranial fossa, heidy yifan and cribriform plate. Normal bilateral orbital contents. Normal nasopharynx without adenoidal pad hypertrophy, or a posterior nasopharyngeal retention cyst. There is no demonstrated enhancing soft tissue or osseous abnormality. CT/Sinus/Facial Bone WITH Contras IMPRESSION: Normal enhanced CT examination of the paranasal sinuses. Nasal septal deviation towards the left side of the midline. Electronically Signed: Garrett Kenney MD at 14:48 EST ,
[2022-11-06 14:50] LABS: CREATININE FINGERSTICK < 0.9 mg/dL (0.55-1.02); EGFR FINGERSTICK > 60.0000 mL/min (>60)
== END | disposition home or self-care (01) ==
LOC: CT 14:14
PROVIDERS: PCP Family Medicine; Referring Provider Family Medicine; Visit Provider Family Medicine
DX: J34.2 Deviated nasal septum (principal); J34.3 Hypertrophy of nasal turbinates; K13.79 Other lesions of oral mucosa
CPT/HCPCS: 70487; Q9967

== ENCOUNTER → 2023-01-10 | Outpatient (CLI) | payer MEDICARE, SELFPAY ==
[2023-01-10 13:01] LABS: Anion Gap 2 (5-15); BUN 16 mg/dL (7-18); BUN/Creat Ratio 18.8 RATIO (10-20); Calcium,Total 9.2 mg/dL (8.5-10.1); Chloride 108 mmol/L (98-107); Creatinine, Serum 0.85 mg/dL (0.55-1.02); EST Glomerular Filtration Rate 68 mL/min (>60); Est Glom Filt Rate - Afr Amer 82 mL/min (>60); Free T3 2.4 pg/mL (2.18-3.98); Glucose 94 mg/dL (74-106); Potassium 4.2 mmol/L (3.5-5.1); Sodium Level 137 mmol/L (136-145); T4 Free Direct 0.97 ng/dL (0.76-1.46); Thyroid Stim Hormone (TSH) 2.38 uIU/mL (0.358-3.74)
== END | disposition home or self-care (01) ==
LOC: MFPLAB 09:49
PROVIDERS: PCP Family Medicine; Referring Provider Family Medicine; Visit Provider Family Medicine
DX: E03.9 Hypothyroidism, unspecified (principal); I10 Essential (primary) hypertension
CPT/HCPCS: 36415; 80048; 84439; 84443; 84481

== ENCOUNTER 2023-08-26 08:52 | Day surgery (SDC) | payer MEDICARE, SELFPAY ==
--- NOTE | 2023-08-19 08:36 | EKG12_ITS ---
Test Reason : PREOP Blood Pressure : / mmHG Vent. Rate : 075 BPM Atrial Rate : 075 BPM P-R Int : 152 ms QRS Dur : 082 ms QT Int : 384 ms P-R-T Axes : 051 027 046 degrees QTc Int : 428 ms Normal sinus rhythm Normal ECG Confirmed by KHALIF LANE ([id number]), development editor CHALO GONZALEZ ([id number]) on 08/19/2023 11:24:31 AM Referred By: Oral Francis Confirmed By:KHALIF LANE
[2023-08-19 09:44] LABS: Hematocrit 41.4 % (37-47); Hemoglobin 13.3 g/dL (12.0-15.0); Mean Corp Hgb Conc 32.1 g/dL (32-36); Mean Corpuscular Volume 90.2 fL (81-99); Mean Platelet Vol. 10.6 fl (6.2-12.0); Platelet Count 305 K/mm3 (150-450); RBC Distribution Width CV 13.1 % (11.6-14.6); RBC Distribution Width SD 43.5 fl (35.1-43.9); Red Blood Count 4.59 M/mm3 (4.2-5.4); White Blood Count 5.4 K/mm3 (4.4-11.0)
[2023-08-19 10:10] LABS: Anion Gap 5 (5-15); BUN 17 mg/dL (7-18); BUN/Creat Ratio 19.6 RATIO (10-20); Calcium,Total 9.1 mg/dL (8.5-10.1); Chloride 106 mmol/L (98-107); Creatinine, Serum 0.87 mg/dL (0.55-1.02); EST Glomerular Filtration Rate 66 mL/min (>60); Est Glom Filt Rate - Afr Amer 80 mL/min (>60); Glucose 103 mg/dL (74-106); Potassium 4.5 mmol/L (3.5-5.1); Sodium Level 140 mmol/L (136-145)
--- NOTE | 2023-08-26 09:05 | PCM.HP.BLA ---
History and Physical Date of Admission: 08/26/23 nterpreter Required: No Is patient in pain?: No Allergies No Known Allergies Allergy (Verified 08/14/23 09:18) Medications amlodipine 5 mg tablet 5 mg PO DAILY 12/29/21 [History Confirmed 08/14/23] sertraline 50 mg tablet 25 mg PO BID 12/29/21 [History Confirmed 08/14/23] PFS Medical History Anxiety Anxiety Arthritis Back pain Cancer Cardiology follow-up encounter Chronic diarrhea Depression Dietary restriction Fatigue Fibromyalgia Gastritis Heart murmur Hemorrhoids History of echocardiogram History of edema History of irregular heartbeat History of sarcoma History of stress test Hypertension Leg cramps Migraine headache Nausea Non-smoker Shortness of breath on exertion Wears glasses Wears hearing aid Surgical History History of esophagogastroduodenoscopy (EGD) History of tonsillectomy and adenoidectomy Hx of appendectomy Hx of cholecystectomy Hx of colonoscopy with polypectomy Hx of hysterectomy Hx of lumpectomy Hx of oral surgery Social History Smoking Status: Never smoker second hand exposure: No alcohol intake: never substance use type: does not use caffeine: Yes what type of physical activity do you participate in: none frequency: does not exercise seatbelt use: always HPI HPI Surgical H&P: Yes HPI: Patient is an 83 y/o F I am seeing for an update history and physical for an upcoming elective surgical hemorrhoidectomy. Patient denies any recent hospitalizations or illnesses. Patient continues to note rectal bleeding. Patient notes she is nervous for the procedure. Patient denies any previous complication or illnesses with anesthesia. Patient's previous history per Dr. Francis: 82-year-old female is being referred by Dr. Jet Meyer for surgical consideration regarding suspected internal hemorrhoids and written compromise surgical consult recommendations will return to him. The patient has seen gastroenterology Dr. Pugh Friend as recently as May 07, 2022. She was being seen at that time because of epigastric pain bloating variable normal and loose stools as well as rectal pressure. It is recorded the patient's most recent colonoscopy was 2018. The patient's work-up detected celiac disease. Historically there is a report of personal history of colon polyps. The patient has apparently more recently been seen by Dr. Celso Hendricks who did a different stages both a esophagogastroduodenoscopy and a colonoscopy according to the patient. The patient was instructed that based upon the colonoscopy there is no evidence of celiac disease. She was told that she had internal hemorrhoids. Her complaint today is rectal bleeding. On occasion it can be very profuse. She notices mucus in blood in the stool. She was concerned that she might have a rectal cancer. ROS General General: Yes fatigue; No weight change, appetite, colon cancer, breast cancer or weakness HEENT HEENT: No difficulty swallowing, eye injury, eye surgery, swollen glands or hoarseness Endo Endocrine: No thyroid disease, diabetes mellitus, thyroid cancer, Hair loss, heat intolerance or cold intolerance Skin Skin: No rash or changing moles Breast Breast: No left breast lump, right breast lump, nipple discharge, breast pain, abnormal mammogram, abnormal US or breast enlargement Musc Musculoskeletal: No back problems, arthritis, rheumatoid arthritis, gout or joint pain Cardio Cardiovascular: Yes high blood pressure; No murmur, pacemaker, heart disease, atrial fibrillation, heart attack, heart stent, palpitations, shortness of breat with exertion or chest pain Psych Psychiatric: Yes anxiety; No depression or hearing voices Resp Respiratory: No shortness of breath, No sleep apnea, Yes cough, No COPD, No asthma, No emphysema and No wheezing Gastro Gastrointestinal: Yes abdominal pain, No nausea or vomiting, Yes diarrhea, No constipation, Yes blood in stool, No acid reflux, Yes hemorrhoids, No ulcers, No gallbladder problem and No black,tarry stools [place] Hematologic: No blood thinners, No blood disorders, No bleeding, No anemia and No blood clots Neuro Neurologic: No system reviewed and no additional complaints, except as documented, No as per HPI, No abnormal gait, No abnormal hearing, No abnormal movements, No abnormal speech, No behavioral changes, No burning sensations, No confusion, No convulsions, No disequilibrium, No dizziness, No localized weakness, No frequent falls, No headache(s), No lack of coordination, No loss of vision, No memory loss, No numbness, No other visual disturbances, No radicular pain, No restless legs, No sensory deficit, No syncope, Yes tingling, No tremor(s), No weakness and No other Exam Const General: cooperative, healthy appearing, comfortable and no acute distress HENMT Head: normal to inspection Eyes General: appearance normal, both eyes and all related structures Neck Neck: normal visual inspection Neck mass: No Chest Chest palpation & inspection: normal inspection of the chest Resp Effort & Inspection: normal respiratory effort Auscultation: clear to auscultation bilaterally Cardio Rate: regular rate Rhythm: regular rhythm GI Inspection: normal to inspection Musc Cervical Spine: normal cervical lordosis Skin General: no rashes or lesions noted Neuro General: no focal motor deficits and CN's II-XI intact bilaterally Extrem General: normal to inspection Psych Appearance: grossly normal Affect: normal affect Assessment and Plan Assessment and Plan (1) Hemorrhoids: Status: Acute Qualifiers: Hemorrhoid type: fourth degree Qualified Code(s): K64.3 - Fourth degree hemorrhoids Plan: Dr. Francis will plan to perform a surgical hemorrhoidectomy. Procedure details, risks and benefits have been reviewed with the patient. Patient will plan to perform 1/2 a Miralax bowel prep the day prior and a fleets enema the morning of the procedure. Patient was provided those instructions on Saturday, 08/09 by our receptionist scheduler. Patient denies any questions in regards to the prep. Patient has had the opportunity to ask and have questions answered. Patient verbally understands and agrees with the plan \I have examined the patient and the H&P has been reviewed. There are no clinical changes since date of exam. Oral Francis M.D., F.A.C.S. Assessment & Plan Assessment/Plan (1) Hemorrhoids: QUALIFIERS: Hemorrhoid type: fourth degree Qualified Code(s): K64.3 - Fourth degree hemorrhoids
--- NOTE | 2023-08-26 09:13 | DCINST_ITS ---
Discharge Instructions Procedure Rectal Surgery Diet Discharge Diet: No restrictions Activity Discharge Activity: Return to Normal Activity and May Not Drive (while you are taking narcotic pain medications. Do not drive, work with heavy equipment or s ign legal documents for 24 hours after your surgery.) Additional Activity Instructions:: Do not drive or work with heavy equipment or sign legal documents for 24 hours. Be aware that pain medications may cause nausea. You should typically eat light foods as you take your pain medications. Mineral oil 1 ounce or 30 cc orally daily in juice or food for 1 week Fiber supplementation like Metamucil or Citrucel or Benefiber or FiberCon a heaping tablespoon in water or fluid daily You may utilize the provided Dibucaine ointment every 4 hours as needed for discomfort locally at the site Sits baths in warm soapy water approximately 20 minutes this time as needed for hygiene and comfort Follow Up Care Please Follow Up With: Oral Francis MD When: Please contact the office at [phone] to schedule an appointment for return in approximately 3 weeks Test Results: Test results from this visit will be discussed in further detail at your follow- up appointment, if applicable. Discharge Plan Admission Primary Reason for Your Visit: Bleeding hemorrhoids Attending Provider: Oral Francis Primary Care Provider: Jet Meyer Discharge Orders/Prescriptions Prescriptions: New metronidazole 250 mg tablet 250 mg PO TID Qty: 15 0RF hydrocodone-acetaminophen 5-325 mg tablet 1 tab PO Q8H PRN (Reason: pain) 3 Days Qty: 10 0RF Continued sertraline 50 mg tablet 25 mg PO BID amlodipine 5 mg tablet 5 mg PO DAILY cholecalciferol (vitamin D3) [Vitamin D3] 125 mcg (5,000 unit) tablet 125 mcg PO DAILY elderberry fruit 200 mg capsule 200 mg PO DAILY Referrals / Follow Up: Jet Meyer MD [Primary Care Provider] - Disposition Disposition (needs filled in before D/C Order can be placed): Home, Self Care
[2023-08-26] MEDS: Lactated Ringers 1,000 ML 15 ML IV ×3 (09:39→12:30)
[2023-08-26 09:40] VITALS: BP 162/89; PULSE 98; RESP 17; TEMP 36.7; O2SAT 98; BMI 25.7
[2023-08-26] MEDS: Cefotetan 2 GM in 0.9% NS 100 ML IV (11:00)
--- NOTE | 2023-08-26 11:10 | HEM_PTH ---
PATIENT: KINDRA WORTHINGTON [place] [facility] [facility] [id number] AGE/SX: 83/F ROOM: RE08/26/[address]: Dr. Oral Francis MD : [id number] BED: DIS: 08/26/2023 SPEC #: [id number] RECD: 08/27/23 08:45 STATUS: NERIS REIvan #: [id number] JACKIE: 08/26/23 11:[address]: Oral Francis DEPT: SURGICAL PATHOLOGY RECD BY: Yamilka Ramirez ENTERED: 08/27/23 08:46 SP TYPE: HEMORRHOID OTHR DR: Dr. Jet Meyer MD Tissues: HEMORRHOIDS Procedures: Surgery Specimen Level III HEADER OPERATION: Multiple column hemorrhoidectomy PRE-OP DIAGNOSIS: Hemorrhoids TISSUE SUBMITTED: Hemorrhoids MICROSCOPIC DIAGNOSIS Hemorrhoids, hemorrhoidectomy: Submucosal vascular ectasia and thrombosis consistent with hemorrhoids. Focal ulceration of mucosa with associated acute and chronic inflammation and granulation. AM:arik 08/28/2023 MICROSCOPIC DESCRIPTION Slides are reviewed. GROSS DESCRIPTION Received in fixative is one container labeled with the patient's name and designated Hemorrhoids. The specimen consists of two irregular fragments of gomez mucosa with attached hemorrhagic submucosal tissue that in aggregate measure 4.0 x 3.0 x 1.5 cm. Director Of Agriculture sections are submitted in one cassette. / AM:arik 08/27/2023 TC:2 CPT: 79779
[2023-08-26] MEDS: Bupivacaine Mpf 0.5% 30 ML VIAL (11:34)
[2023-08-26] MEDS: BUPIVACAINE LIPOSOME/PF 20 ML VIAL OPERA.SITE (11:34)
[2023-08-26] MEDS: Dibucaine 30 GM Tube 1 APPLIC (11:34)
--- NOTE | 2023-08-26 11:37 | PCM.OPRPT ---
Report of Operation Date of Procedure: 08/26/23 Pre-Operative Diagnosis: Bleeding prolapsing internal hemorrhoids Post-Operative Diagnosis: Same Surgery/Procedure Performed:: Multiple column hemorrhoidectomy Description of Surgical Findings:: Timeout informed consent was obtained. 83-year-old female was taken to the operating underwent general endotracheal intubation esthesia cefotetan 2 g were given intravenously during the procedure she placed prone on the table the perianal area was carefully exposed in a jackknife position tape was applied with Skin-Prep the perianal area is prepped with Betadine there appeared to be prolapsing tissue anteriorly with ulceration I placed an apical suture of 0 Vicryl to help secure the venous inflow used a 2-0 chromic as well used harmonic scalpel to carefully excise the tissue and the sphincter mechanism was identified and carefully preserved mucosa was then approximated to itself with a running 2-0 chromic similar procedure was performed posteriorly and then on the right lateral aspect there was some internal hemorrhoidal tissue dilated gated with a [id number] suture of 2-0 chromic the jackie-incisional areas anesthetized with 20 cc of Exparel mixed with 20 cc of 0.5% Marcaine Vaseline gauze treated with Dibucaine ointment was placed internally followed by dry cover gauzes sponge and instrument and needle counts were reported to the surgeon to be correct blood loss was minimal. She tolerated seizure well was taken to the recovery room in satisfied condition without apparent complication Specimens hemorrhoids. Drains Vaseline gauze dressing. Blood loss minimal. The patient was taken to the recovery room sepsis condition with apparent complication Oral Francis M.D., F.A.C.S. Surgeon: Oral Francis Type of Anesthesia: General and Local Anesthesiologist: Khang Browne
[2023-08-26 11:49] VITALS: BP 162/89; BP 173/87; PULSE 91; RESP 16; TEMP 36.4; O2SAT 97
[2023-08-26 12:00] VITALS: BP 162/89; BP 167/98; PULSE 110; RESP 16; O2SAT 95
[2023-08-26 12:15] VITALS: BP 162/89; BP 166/80; PULSE 86; RESP 16; O2SAT 96
[2023-08-26 12:31] VITALS: BP 162/89; BP 166/84; PULSE 91; RESP 18; TEMP 36.4; O2SAT 98
[2023-08-26 13:30] VITALS: BP 162/77; BP 162/89; PULSE 88; RESP 16; O2SAT 97
== END 2023-08-26 13:45 | disposition home or self-care (01) ==
LOC: SDC 08:53 → AC 08:58
PROVIDERS: PCP Family Medicine; Referring Provider Surgery; Visit Provider Surgery
PROC: (CPT 46260; principal; 2023-08-26 10:55)
DX: K64.3 Fourth degree hemorrhoids (principal); K62.5 Hemorrhage of anus and rectum; I10 Essential (primary) hypertension; M79.7 Fibromyalgia; Z86.010 Personal history of colon polyps
CPT/HCPCS: 46260; 00902; 36415; 80048; 85027; 88304; 93005; J7120; J2405

== ENCOUNTER → 2024-06-25 | Outpatient (CLI) | payer MEDICARE, SELFPAY ==
[2024-06-25 15:09] LABS: Absolute Lymphocyte Count 1.96 X10^3/uL (0.83-4.51); Absolute Neutrophil Count 3.9 X10^3/uL (2.0-7.7); Basophil# 0.04 X10^3/uL; Basophil% 0.6 % (0-1); Eosinophil# 0.19 X10^3/uL; Eosinophils% 2.9 % (0-5); Hematocrit 39.6 % (37-47); Hemoglobin 13.1 g/dL (12.0-15.0); Lymphocyte # 1.96 X10^3/ul (0.83-4.51); Lymphocyte % 29.5 % (19-41); Mean Corp Hgb Conc 33.1 g/dL (32-36); Mean Corpuscular Hgb 29.4 pg (27.0-32.0); Mean Platelet Vol. 11.2 fl (6.2-12.0); Monocyte# 0.51 X10^3/uL; Monocyte% 7.7 % (0-10); NRBC Flagged by Analyzer 0 % (0-5); Neutrophil # 3.92 X10^3/uL (2.7-7.7); Platelet Count 303 K/mm3 (150-450); RBC Distribution Width CV 12.7 % (11.6-14.6); RBC Distribution Width SD 41.7 fl (35.1-43.9); Red Blood Count 4.45 M/mm3 (4.2-5.4); White Blood Count 6.6 K/mm3 (4.4-11.0)
[2024-06-25 15:28] LABS: Anion Gap 6 (5-15); BUN 16 mg/dL (7-18); BUN/Creat Ratio 19.1 RATIO (10-20); Calcium,Total 9.4 mg/dL (8.5-10.1); Chloride 104 mmol/L (98-107); Creatinine, Serum 0.84 mg/dL (0.55-1.02); EST Glomerular Filtration Rate 69 mL/min (>60); Est Glom Filt Rate - Afr Amer 83 mL/min (>60); Glucose 95 mg/dL (74-106); Sodium Level 136 mmol/L (136-145)
== END | disposition home or self-care (01) ==
PROVIDERS: PCP Family Medicine; Referring Provider Family Medicine; Visit Provider Family Medicine
DX: R42 Dizziness and giddiness (principal)
CPT/HCPCS: 36415; 80048; 85025

== ENCOUNTER 2024-07-17 09:00 | Outpatient (RCR) | payer MEDICARE, SELFPAY ==
--- NOTE | 2024-07-10 13:11 | HP.PTEVAL_ITS ---
Patient's Visit Information Visit Information Visit Information: KINDRA WORTHINGTON is a 84 year old F referred to Physical Therapy by Dr. Jte Meyer MD with a diagnosis of dizzyness. Date of Evaluation: 07/10/24 Physical Therapist: Khang Ferrell, DPT, OCS, CSCS Visit Plan Frequency: 1-2x /Week Duration: 2-4 Weeks Plan: 1-2x/week as needed for 2-4 weeks for positional treatments, exercises and balance as needed. IE: treated with Larry alex and insturct with HO Subjective Subjective: Feels unstable. No spinning, does get lightheaded and unsteady. S tarted a month ago. No apparent reason but was stressed. has not had this prior. 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 Feeling is intermittent. Gets up wobbly, bending over can cause it and when she lies in bed or sits up. It lasts seconds. Feels normal otherwise. One fall, 4 weeks ago tripping on doormat. It is gone now. activities are normal. Sleeping OK Lives with , one story without steps, one to enter. Objective Objective: Walks back to PT I and steps reciprocal with one rail. Feels unsteay to move head but good otherwise. Transfers I bed and chair. Cervical AROM L rotation 50 and R 54 with stiffness on R. UE AROM WFL and strength 4-/5 without pain. Sensation UE WNL to gross light touch. - R HD test + L HD test up torsional nystagmus 6 seconds, Treated with abi adn education and then - test. Balance/Special Test Scores Functional Gait Assessment Score: 26 % Disability: 13.3400 Dizziness Score: 44 Goals Goal 1:: aboish dizzyness/[id number] with posoition change Goal Time Frame: 2-4 Weeks Goal 2:: FGA Goal Time Frame: 2-4 Weeks Goal 3:: Pt feel 100% back to normal Goal Time Frame: 2-4 Weeks Rehabilitation Potential Physical Therapy Diagnosis: positional vertigo effecting comfort and balance Rehabilitation Potential: Good Anticipated Interventions Patient/Client Instruction: Educate patient on: Condition and Plan of Care For the Purpose of:: To increase tolerance to activity/condition/position, To improve gait and locomotor functions and To improve safety Therapeutic Exercise to Include: Balance training Comment: psoitional ex adn treatments For the Purpose of:: To increase tolerance to activity/condition/position, To improve gait and locomotor functions and To improve safety Text: Thank you for the opportunity to evaluate your patient. For Medicare and Medicare HMO plans, please review the plan of care and approve it. It will need to be FAXED BACK to us at [phone] for Medicare purposes. For Medicare only, by signing this I certify the plan of care. Please let me know if there are questions or concerns regarding this plan of care. Physician Signature:_ Date:
--- NOTE | 2024-09-14 13:32 | HP.PT.NRP ---
Patient Information Patient Information: KINDRA WORTHINGTON was seen in my office for initial evaluation on 07/10/24. The following Plan of Care was established for this patient: POC Established Initial Frequency: 1-2x /Week Initial Duration: 2-4 Weeks Anticipated Interventions Patient/Client Instruction: Educate patient on: Condition and Plan of Care For the Purpose of:: To increase tolerance to activity/condition/position, To improve gait and locomotor functions and To improve safety Therapeutic Exercise to Include: Balance training For the Purpose of:: To increase tolerance to activity/condition/position, To improve gait and locomotor functions and To improve safety Last Seen Last Seen: This patient was last seen in our office 07/17/24. Pertinent comments regarding their Physical therapy will appear below: Pt seen 2 visits of POC but did not schedule or attend any further visits in POC. At this point, it has been over 6 weeks and I will discontinue from my care. At this point I will be discontinuing this patient from physical therapy. I would be happy to see this patient again in the future if found appropriate by the physician. Thank you! Khang Ferrell, DPT, OCS, CSCS Balance/Gait/Functional tests Balance/Special Test Scores Functional Gait Assessment Score: 26 % Disability: 13.3400 Dizziness Score: 44
== END 2024-07-17 19:00 | disposition home or self-care (01) ==
LOC: PT 09:00
PROVIDERS: PCP Family Medicine; Referring Provider Family Medicine; Visit Provider Family Medicine
DX: R42 Dizziness and giddiness (principal)
CPT/HCPCS: 97161; 97530

== ENCOUNTER → 2024-10-27 | Outpatient (CLI) | payer MEDICARE, SELFPAY ==
--- NOTE | 2024-10-27 07:51 | CT_ITS ---
STUDY: CT BRAIN WITHOUT CONTRAST REASON FOR EXAM: Female, 84 years old. VERTIGO RADIATION DOSAGE (If Supplied By Facility): CTDIvol = ( 44.99 ) mGy, DLP = ( 796.11 ) mGycm TECHNIQUE: Transaxial CT imaging of the brain was performed without administration of intravenous contrast material. Individualized dose optimization techniques were used for this CT. COMPARISON: No relevant priors. FINDINGS: Normal soft tissue structures. Normal calvarium. There is mild cerebral atrophy with widening of the extra-axial spaces and ventricular dilatation. There are areas of decreased attenuation within the white matter tracts of the supratentorial brain, consistent with microvascular disease changes. 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 Normal brainstem. Normal cerebellum. There is no intracranial hemorrhage. There are no findings of an acute ischemic infarction. Atherosclerotic plaque formation of the cavernous portions of the internal carotid arteries bilaterally. Normal visualized paranasal sinuses. CT/Brain/Head without Contrast IMPRESSION: Chronic involutional changes of the brain. Electronically Signed: Garrett Kenney MD at 15:55 EST ,
== END | disposition home or self-care (01) ==
LOC: CT 07:48
PROVIDERS: PCP Family Medicine; Referring Provider Family Medicine; Visit Provider Family Medicine
DX: R42 Dizziness and giddiness (principal)
CPT/HCPCS: 70450

== ENCOUNTER → 2025-08-02 | Outpatient (CLI) | payer MEDICARE, SELFPAY ==
--- NOTE | 2025-08-02 15:57 | RAD_ITS ---
PROCEDURE: PELVIS 1 OR 2 VIEWS 08/02/2025 REASON FOR EXAM: PELVIC PAIN TECHNIQUE: Procedure Code: RADPEL Modality: DX Procedure: PELVIS 1 OR 2 VIEWS COMPARISON: None FINDINGS: There is no fracture identified. The SI joints are aligned. The sacral foramina appear intact. Mineralization is normal. 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 Phleboliths are present. RAD/Pelvis 1 or 2 Views IMPRESSION: No fracture or dislocation is identified. Reading Location: [facility]
== END | disposition home or self-care (01) ==
LOC: MTRAD 15:55
PROVIDERS: PCP Family Medicine; Referring Provider Family Medicine; Visit Provider Family Medicine
DX: R10.20 Pelvic and perineal pain unspecified side (principal)
CPT/HCPCS: 72170

== ENCOUNTER → 2025-08-20 | Outpatient (CLI) | payer MEDICARE, SELFPAY ==
--- NOTE | 2025-08-20 11:54 | CT_ITS ---
PROCEDURE: PELVIS WITH IV CONTRAST 08/20/2025 REASON FOR EXAM: PELVIC PAIN Right-sided buttock pain. TECHNIQUE: Procedure Code: CTPELW Modality: CT Procedure: PELVIS WITH IV CONTRAST CONTRAST: Isovue-300 VOLUME: 100 mL One or more dose reduction techniques were used (e.g., Automated exposure control, adjustment of the mA and/or kV according to patient size, use of iterative reconstruction technique). RADIATION DOSE SUMMARY: CTDlvol: 28.21 mGy DLP: 1169.66 mGycm COMPARISON: None FINDINGS: Bladder: Cystocele. Reproductive Organs: Status post hysterectomy. Bowel: Colonic diverticulosis without diverticulitis. Lymph nodes: No suspicious lymph node enlargement. Vasculature: Mild diffuse atherosclerotic calcifications are noted. Peritoneum / Retroperitoneum: Unremarkable. Bones: Grade 1 anterior listhesis with disc space narrowing at the L4-L5 level. No fracture is seen. CT/Pelvis WITH IV Contrast IMPRESSION: Status post hysterectomy. Cystocele. Sigmoid diverticulosis. Reading Location: [facility]
[2025-08-20 12:46] LABS: Anion Gap 9 (5-15); BUN 15 mg/dL (4-19); BUN/Creat Ratio 17.9 RATIO (10-20); Calcium,Total 9.5 mg/dL (7.6-11.0); Carbon Dioxide 24.8 mmol/L (21.0-32.0); Chloride 103 mmol/L (98-108); Glucose 98 mg/dL (70-99); Potassium 4.8 mmol/L (3.3-5.1)
== END | disposition home or self-care (01) ==
LOC: MFPLAB 11:35 → CT 11:37
PROVIDERS: PCP Family Medicine; Referring Provider Family Medicine; Visit Provider Family Medicine
DX: R60.9 Edema, unspecified (principal)
CPT/HCPCS: 36415; 72193; 80048; Q9967